=== PATIENT | male | born 1980 | race Caucasian/White ===

== ENCOUNTER 2017-03-28 21:58 | Emergency (ER) | payer OTHER, SELFPAY | END 2017-03-29 00:02 | disposition home or self-care (01) | PROVIDERS: Emergency Provider Emergency Medicine; Family Provider Emergency Medicine; Visit Provider Emergency Medicine | DX: J10.1 Influenza due to other identified influenza virus with other respiratory manifestations (principal); F17.210 Nicotine dependence, cigarettes, uncomplicated; Z88.0 Allergy status to penicillin; Z88.6 Allergy status to analgesic agent | CPT/HCPCS: 71020; 87070; 87275; 87276; 87430; 99282 ==

== ENCOUNTER 2017-08-12 16:45 | Outpatient (RCR) | payer OTHER, SELFPAY | END 2017-08-12 16:46 | disposition home or self-care (01) | LOC: PT 16:45 | PROVIDERS: Family Provider Emergency Medicine; PCP Emergency Medicine; Visit Provider Orthopaedic Surgery Sports Medicine | DX: M19.019 Primary osteoarthritis, unspecified shoulder (principal) | CPT/HCPCS: 97163 ==

== ENCOUNTER 2021-04-26 23:53 | Inpatient (IN) | payer MEDICAID, SELFPAY ==
[2021-04-26 23:42] VITALS: BP 142/89; PULSE 99; RESP 14; TEMP 36.9; O2SAT 90; BMI 31.1
--- NOTE | 2021-04-27 00:30 | XR_ITS ---
PROCEDURE INFORMATION: Exam: XR Chest Exam date and time: 04/27/2021 12:30 AM Age: 40 years old Clinical indication: Shortness of breath; Additional info: Overdose TECHNIQUE: Imaging protocol: XR of the chest. Views: 1 view. COMPARISON: CR CXR CHEST(2 VIEWS-NOT PORTABLE) 03/28/2017 10:44 PM FINDINGS: Lungs: Right lung and left lower lung consolidations. Pleural spaces: Unremarkable. No pleural effusion. No pneumothorax. Heart/Mediastinum: Borderline cardiomegaly. Bones/joints: Unremarkable. IMPRESSION: Right lung and left lower lung consolidations. This may represent pneumonia. Aspiration is also possible.
--- NOTE | 2021-04-27 01:18 | HMH.EDOD ---
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 The time I documented below is in addition to time spent performing reported procedures but includes the following listed in this critical care notation. Medical Decision Making - Medical Records Medical records reviewed: Yes: I reviewed the patient's medical records. - Javier Inquiry Pt receiving controlled substance: No Vital Signs: 04/26/21 23:42 04/27/21 01:30 Temperature 98.4 F Temperature Source Oral Pulse Rate [Right] 99 H Respiratory Rate 14 Blood Pressure 121/85 Blood Pressure [Right Arm] 142/89 H Blood Pressure Mean 93 Blood Pressure Mean [Right Arm] 106 02 Sat by Pulse Oximetry 90 L 94 L Oxygen Delivery Method Room Air Nasal Cannula Oxygen Flow Rate (LPM) 3 - Lab Data Lab results reviewed: Yes: I reviewed the patient's lab results. Lab Results 04/27/21 01:22: WBC 22.4 H*, RBC 5.27, Hgb 16.2, Hct 47.9, MCV 90.9, MCH 30.8, MCHC 33.9, RDW 13.6, Plt Count 292, MPV 9.9, Neut % (Auto) 87.0 H, Lymph % (Auto) 7.0 L, [place] % (Auto) 4.4, Eos % (Auto) 0.7, Baso % (Auto) 0.9, Neut # (Auto) 19.5 H, Lymph # (Auto) 1.6, [place] # (Auto) 1.0, Eos # (Auto) 0.2, Baso # (Auto) 0.2, Total Counted 100, Neutrophils % (Manual) 88 H, Lymphocytes % (Manual) 11, Eosinophils % (Manual) 1, Platelet Estimate Normal, RBC Morphology Not Reportable, Stomatocytes 1+, ESR 6 04/27/21 01:22: Sodium 141, Potassium 4.4, Chloride 108 H, Carbon Dioxide 24, Anion Gap 13.4, BUN 8 L, Creatinine 0.70, Estimated Creat Clear 211, Estimated GFR 126, Est GFR ( Amer) 153, Glucose 179 H, Calcium 8.5, Total Bilirubin 0.3, AST 31, ALT 22, Alkaline Phosphatase 93, C-Reactive Protein 2.5, Total Protein 7.2, Albumin 4.5, Globulin 2.7, Albumin/Globulin Ratio 1.7, Procalcitonin 0.122, Salicylates < 1.0 L, Acetaminophen < 10 L 04/27/21 01:22: Plasma/Serum Alcohol < 10 04/27/21 01:29: Urine Opiates Screen Negative, Urine Methadone Screen Negative, Ur Barbituates Screen Negative, Ur Phencyclidine Scrn Negative, Ur Amphetamines Screen Negative, U Benzodiazepines Scrn Negative, Urine Cocaine Screen Negative, U Marijuana (THC) Screen Negative 04/27/21 01:29: Urine Color Yellow, Urine Appearance Clear, Urine pH 6.0, Ur Specific [place] >= 1.030, Urine Protein 2+, Urine Glucose (UA) 2+, Urine Ketones Negative, Urine Blood Negative, Urine Nitrate Negative, Urine Bilirubin Negative, Urine Urobilinogen 0.2, Ur Leukocyte Esterase Negative, Urine WBC Occasional, Urine Bacteria Trace 04/27/21 01:29: Lactate 2.3 H 04/27/21 01:29: SARS-CoV-2 (PCR) Detected A, Influenza A Untype (PCR) Not detected, Influenza Type B (PCR) Not detected Result diagrams: 04/27/21 01:22 04/27/21 01:22 Orders (Tests/Meds): ED MEDICATIONS Generic Name Dose Route Start Last Admin Trade Name Freq PRN Reason Stop Dose Admin Sodium Chloride 1,000 mls @ 999 mls/hr 04/27/21 00:45 04/27/21 01:13 Sod Chlor 0.9% 1000ml Bag IV 04/27/21 01:45 999 mls/hr .Q1H1M KRISTEN Administration Azithromycin 500 mg/ Sodium 250 mls @ 250 mls/hr 04/27/21 01:45 04/27/21 02:47 Chloride IV 05/11/21 01:44 250 mls/hr Q24H KRISTEN Administration Ceftriaxone Sodium 1 gm/ 50 mls @ 100 mls/hr 04/27/21 01:45 04/27/21 01:58 Sodium Chloride IV 05/11/21 01:44 100 mls/hr Q24H KRISTEN Administration Clindamycin Phosphate 900 mg/ 106 mls @ 100 mls/hr 04/27/21
[2021-04-27 01:30] VITALS: BP 121/85; O2SAT 94
[2021-04-27 01:30] LABS: Basophils # 0.2 K/mm3 (0-0.2); Basophils % 0.9 % (0.1-2.0); Eosinophils # 0.2 K/mm3 (0.0-0.4); Eosinophils % 0.7 % (0.1-12.0); Hematocrit 47.9 % (42.0-52.0); Hemoglobin 16.2 g/dL (14.1-18.0); Lymphocytes # 1.6 K/mm3 (0.7-4.5); Mean Corpuscular HGB Conc 33.9 g/dL (31.8-35.4); Mean Corpuscular Hemoglobin 30.8 pg (27.0-31.2); Mean Corpuscular Volume 90.9 fl (80-94); Mean Platelet Volume 9.9 fl (7.4-10.4); Monocytes % 4.4 % (1.7-9.3); Neutrophils # 19.5 K/mm3 (1.8-7.8); Platelet Count 292 K/mm3 (142-424); Red Blood Count 5.27 M/mm3 (4.60-6.20); Red Cell Distribution Width 13.6 % (11.5-17.5); White Blood Count 22.4 K/mm3 (4.8-10.8)
[2021-04-27 01:39] LABS: MANUAL DIFFERENTIAL MANUAL DIFFERENTIAL (MANUAL DIFF)
--- NOTE | 2021-04-27 01:42 | CT_ITS ---
PROCEDURE INFORMATION: Exam: CTA Chest With Contrast Exam date and time: 04/27/2021 1:42 AM Age: 40 years old Clinical indication: Shortness of breath; Additional info: SOA TECHNIQUE: Imaging protocol: Computed tomographic angiography of the chest with contrast. 3D rendering (Not supervised by radiologist): MIP and/or 3D reconstructed images were created by the technologist. Radiation optimization: All CT scans at this facility use at least one of these dose optimization techniques: automated exposure control; mA and/or kV adjustment per patient size (includes targeted exams where dose is matched to clinical indication); or iterative reconstruction. Contrast material: ISOVUE; Contrast volume: 70 ml; Contrast route: INTRAVENOUS (IV); COMPARISON: CR XR CHEST PORTABLE 04/27/2021 12:39 AM FINDINGS: Pulmonary arteries: Normal. No pulmonary emboli. Aorta: Unremarkable. No aortic aneurysm. No aortic dissection. Lungs: Widespread ground-glass airspace disease more pronounced in the right lung than left. There is a 3 mm left upper lobe nodule image 30 series 5. Pleural spaces: Unremarkable. No pneumothorax. No pleural effusion. Heart: Unremarkable. No cardiomegaly. No pericardial effusion. Lymph nodes: Unremarkable. No enlarged lymph nodes. Liver: Hepatic steatosis. Gallbladder and bile ducts: Gallbladder is absent. Bones/joints: Unremarkable. No acute fracture. Soft tissues: Unremarkable. Other findings: Stigmata of old granulomatous disease. IMPRESSION: 1. Widespread ground-glass airspace disease more pronounced in the right lung than left. Atypical infection, aspiration, or noncardiogenic edema are considerations. 2. Hepatic steatosis. 3. There is a 3 mm left upper lobe nodule image 30 series 5. For patients at low risk (minimal or absent history of smoking and of other known risk factors), no routine follow-up is indicated. For patients at high risk (history of smoking or of other known risk factors), consider optional CT Chest at 12 months. (Reference: Afsaneh) REFERENCES: Afsaneh Pierce, et al. Guidelines for Management of Incidental Pulmonary Nodules Detected on CT Images: From the Fleischner Society 2017. Radiology. 2017;284(1):228-243.
[2021-04-27 01:44] LABS: Alanine Aminotransferase 22 U/L (12-78); Albumin Level 4.5 g/dl (3.5-5.0); Albumin/Globulin Ratio 1.7 (1.1-1.8); Alkaline Phosphatase 93 U/L (38-126); Anion Gap 13.4 mEq/L (5-15); Aspartate Amino Transferase 31 U/L (17-59); Bilirubin,Total 0.3 mg/dl (0.2-1.3); Blood Urea Nitrogen 8 mg/dl (9-20); Calcium 8.5 mg/dl (8.4-10.2); Carbon Dioxide 24 mmol/L (22.0-30.0); Chloride 108 mmol/L (98-107); Creatinine Clearance Estimated 211 mL/min (50-200); Estimated Glomerular Filt Rate 126 ml/min (>60); GFR (African American) 153 ML/MIN (>60); Globulin 2.7 g/dL (1.3-3.2); Glucose 179 mg/dl (74-100); Potassium 4.4 mmoL/L (3.5-5.1); Sodium 141 mmol/L (136-145); Total Protein,Serum 7.2 g/dl (6.3-8.2)
[2021-04-27 01:51] LABS: Acetaminophen < 10 ug/ml (10-30); Ethyl Alcohol < 10 mg/dl (0-10); Salicylate < 1.0 mg/dL (2.0-20.0)
[2021-04-27 01:55] LABS: C-Reactive Protein 2.5 mg/L (0-4)
[2021-04-27 01:59] LABS: Influenza A, PCR Not Detected (NotDetected); Influenza B, PCR Not Detected (NotDetected); Microscopic, Urine URINE MICROSCOPIC (MICROSCOPIC)
[2021-04-27 02:00] LABS: Procalcitonin 0.122 ng/mL (0.0-2.0)
[2021-04-27 02:04] LABS: Erythrocyte Sedimentation Rate 6 mm/hr (0-15)
[2021-04-27 02:07] LABS: Appearance,Urine CLEAR (Clear); Bilirubin,Urine Negative (Negative); Blood, Urine Negative (Negative); Color,Urine YELLOW (Yellow); Glucose,Urine (UA) 2+ (Negative); Ketones,Urine Negative (Negative); Leukocyte Esterase,Urine Negative (Negative); Nitrate,Urine Negative (Negative); Protein,Urine 2+ (Negative); Specific Gravity, Urine >= 1.030 (1.005-1.030); Urobilinogen,Urine 0.2 EU/dl (0.2)
[2021-04-27 02:18] LABS: Benzodiazepines Screen,Urine Negative ng/ml (<200)
[2021-04-27 02:19] LABS: Amphetamine/Metha Screen,Urine Negative ng/ml (<1000); Bacteria,Urine Trace /lpf; WBC,Urine Occasional #/hpf (0-3)
[2021-04-27 02:20] LABS: Barbiturates Screen,Urine Negative ng/ml (<200); Cannabinoid Screen,Urine Negative ng/ml (<50); Lactic Acid 2.3 mmol/L (0.7-2.1)
[2021-04-27 02:21] LABS: Cocaine Screen,Urine Negative ng/ml (<300); Coronavirus 19, PCR Detected (NotDetected)
[2021-04-27 02:22] LABS: Methadone Screen,Urine Negative ng/ml (<300); Opiate Screen,Urine Negative ng/ml (<300)
[2021-04-27 02:23] LABS: Phencyclidine Screen,Urine Negative ng/ml (<25)
[2021-04-27 03:01] LABS: Eosinophils % 1 % (0-3); Lymphocytes % 11 % (10-50); Neutrophils % 88 % (42-76); Total Cells Counted 100
[2021-04-27 03:02] LABS: Platelet Estimate Normal; Stomatocytes 1+
[2021-04-27 04:15] VITALS: BMI 34.1
[2021-04-27 05:46] VITALS: BP 134/75; PULSE 85; RESP 20; TEMP 36.8; O2SAT 96
[2021-04-27 05:52] VITALS: BP 134/78; PULSE 86; RESP 20; TEMP 37.1; O2SAT 93
[2021-04-27 05:58] LABS: Reflex Lactic Add Lactic Reflex
--- NOTE | 2021-04-27 07:30 | XR_ITS ---
FINAL REPORT CLINICAL HISTORY: sob covid pneumonia COMPARISON: 04/27/2021 FINDINGS: SINGLE VIEW CHEST The heart is normal in size. The mediastinum is unremarkable. There is patchy airspace opacity in the right perihilar region which is improved since previous, probably related to resolving pneumonia. There is no pneumothorax. IMPRESSION: Resolving pneumonia. Reviewed, Interpreted and Dictated by Juanjose Roblero MD Transcribed by Debi Ramirez Authenticated by Juanjose Roblero MD on 04/27/2021 10:07:41 AM [facility]
[2021-04-27 07:52] LABS: Anion Gap 12.4 mEq/L (5-15); Blood Urea Nitrogen 6 mg/dl (9-20); Calcium 8.9 mg/dl (8.4-10.2); Carbon Dioxide 22 mmol/L (22.0-30.0); Chloride 108 mmol/L (98-107); Creatinine Clearance Estimated 269 mL/min (50-200); Estimated Glomerular Filt Rate 151 ml/min (>60); GFR (African American) 182 ML/MIN (>60); Glucose 165 mg/dl (74-100); Magnesium 1.8 mg/dl (1.6-2.3); Potassium 4.4 mmoL/L (3.5-5.1); Sodium 138 mmol/L (136-145)
[2021-04-27 07:57] LABS: Lactic Acid Follow Up (RFLX 1) 3.1 mmol/L (0.7-2.1)
[2021-04-27 08:00] VITALS: BP 157/88; PULSE 83; RESP 16; TEMP 37.2; O2SAT 92
--- NOTE | 2021-04-27 08:00 | CA_ITS ---
APPROVED REPORT EXAM: Comprehensive 2D, Doppler, and color-flow Echocardiogram English As A Second Language Instructor: Brook Orta CRT Ht: 6 ft 0 in Wt: 251lbs BSA: 2.35 BP: 121/85 mmHg Indications: OD, Narcan'd opiate use, hemophilia, Murmur, Palpitations, Hypertension/HDD 2D Dimensions LVOT 1.97 cm (M/F) 1.5-2.5 LA Volume 23.60 mL LA Volume Index 10.00 mL/m2 (M/F) 16-34 M-Mode Dimensions RVDd 3.81 cm (0.9-2.6) LA Diam 3.54 cm (1.9-4.0) LVDd 4.70 cm (3.5-5.7) Ao Diam 3.83 cm (2.0-3.7) LVDs 3.05 cm (3.5-5.7) IVSd 1.61 cm (0.6-1.1) PWd 0.76 cm (0.6-1.1) EF (Teich) 64.50% FS 35.10% EDV (Teich) 102.40 mL TAPSE 1.96 (<1.7) ESV (Teich) 36.40 mL LV Diastology E Decel Time 233.00 (160-240 msec) E/A Ratio 0.66 MED E' 7.70 (< 7 cm/sec) MED A' 15.20 cm/s E'/MED E' Ratio 9.92 (>14) LAT E' 7.30 (<10 cm/sec) LAT A' 11.40 cm/s E/LAT E' Ratio 10.47 (>14) Aortic Valve AO Peak GR. 10.20 mmHg Mitral Valve MV A Velocity 116.00 (40-130 cm/s) E/A Ratio 0.66 MV Decel. Time 233.00 (160-240 ms) Pulmonary Valve PV Peak Velocity 93.00 (50-150 cm/s) Tricuspid Valve TR P. Velocity 115.00 cm/s RAP Estimate 10.00 mmHg RVSP 15.30 mmHg Left Ventricle Left atrium is mildly enlarged, left ventricle is normal size, mild concentric left ventricular hypertrophy, visually estimated ejection fraction 55% with no regional wall motion abnormality, grade 1 diastolic dysfunction seen without tissue Doppler evidence of raise left atrial pressure. Right Ventricle Right atrium and right ventricle mildly enlarged with normal contractility. Aortic Valve Aortic valve is minimally thickened and fibrosed, there is no aortic stenosis or aortic insufficiency. Mitral Valve Mitral valve grossly normal, there is trace mitral regurgitation. Tricuspid Valve Tricuspid valve grossly normal, there is trace tricuspid regurgitation, tricuspid regurgitation jet velocity is inadequate for calculation of the right ventricular systolic pressure. Pulmonic Valve Pulmonic valve is poorly visualized. Great Vessels Aortic root is normal size. Inferior vena cava is normal size with normal inspiratory collapse. Pericardium No significant pericardial effusion noted. Conclusion 1. Mild biatrial enlargement, normal left ventricular size, mild concentric left ventricular hypertrophy, visually estimated ejection fraction 55% with no regional wall motion abnormality, grade 1 diastolic dysfunction seen without tissue Doppler evidence of raise left atrial pressure. 2. Mildly enlarged right ventricle with normal contractility. 3. Trace mitral and tricuspid regurgitation. 4. No significant pericardial effusion noted. 5. Inferior vena cava is normal size with normal inspiratory collapse. Electronically signed by : Akash Fairbanks MD 04/28/2021 09:22:46
--- NOTE | 2021-04-27 08:18 | HMH.PHAVTE ---
[facility] Pharmacy VTE Monitoring - Patient Demographics Admission date: 04/27/21 Report Date: 04/27/21 Time: 08:18 Allergies/Adverse Reactions: Patient Allergies penicillin G [PENICILLIN G] Allergy (Intermediate, Verified 10/20/20 13:12) I-HIVES aspirin [ASPIRIN] Allergy (Unknown, Verified 10/20/20 13:12) NSAIDS (Non-Steroidal Anti-Inflamma [NSAIDS (NON-STEROIDAL ANTI-INFLAMMA] Allergy (Unknown, Verified 10/20/20 13:12) Height: 1.83 m Weight: 114.107 kg Patient Problems: Current Active Problems Obesity (BMI 30-39.9) (Acute) COVID-19 (Acute) Pneumonia (Acute) 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
[2021-04-27 08:31] LABS: Basophils # 0.1 K/mm3 (0-0.2); Basophils % 0.5 % (0.1-2.0); Eosinophils % 0.1 % (0.1-12.0); Hematocrit 44.3 % (42.0-52.0); Hemoglobin 14.8 g/dL (14.1-18.0); Lymphocytes # 0.7 K/mm3 (0.7-4.5); Lymphocytes % 5.9 % (10-50); Mean Corpuscular HGB Conc 33.4 g/dL (31.8-35.4); Mean Corpuscular Hemoglobin 30.1 pg (27.0-31.2); Mean Corpuscular Volume 90.2 fl (80-94); Mean Platelet Volume 10.7 fl (7.4-10.4); Monocytes # 0.3 K/mm3 (0.1-1.0); Monocytes % 2.2 % (1.7-9.3); Neutrophils # 11.5 K/mm3 (1.8-7.8); Neutrophils % 91.4 % (37.0-80.0); Platelet Count 213 K/mm3 (142-424); Red Blood Count 4.91 M/mm3 (4.60-6.20); Red Cell Distribution Width 13.6 % (11.5-17.5); White Blood Count 12.6 K/mm3 (4.8-10.8)
[2021-04-27 09:27] LABS: Reflex Lactic (2 hrs) Add Lactic Reflex
[2021-04-27 09:59] LABS: Lactic Acid Follow up (RFLX 2) 2.9 mmol/L (0.7-2.1)
[2021-04-27 10:37] VITALS: BMI 34.0
--- NOTE | 2021-04-27 13:57 | HMH.PULMCON ---
*Admission Date: 04/27/21 *Reason for consult:: Acute hypoxic respiratory failure, COVID-19 pneumonia *History of present illness: Mr. Sabillon is a 40-year-old male not yet vaccinated for COVID-19 pneumonia carries a diagnosis of hemophilia A presented to the hospital worsening respiratory distress and found positive for COVID-19 pneumonia and pulmonary was called for further management. [facility] History Medical History: Reports:: Anxiety, Hypertension Denies:: Cancer, Diabetes Mellitus Type 1, Diabetes Mellitus Type 2, MRSA *Have you ever received a pneumonia vaccine?: No *Have you received a flu vaccine this season?: No Laterality Cases: Left: Tonsillectomy Other Surgeries: Yes: Cholecystectomy Amputation: No - *Social History Smoking Status: Current every day smoker Tobacco Type: cigarettes # Packs/Day (cigarettes): 1 Alcohol Intake: never Substance Use Type: opiates *Occupational Status:: unemployed *Travel in the last 8 weeks: None - Psychiatric History Pschychiatric History:: Reports:: Anxiety Family Hx:: No significant family history ROS - Cons Reports body ache(s), Denies chills - Eyes Denies change in vision - ENT Denies bleeding gums, Denies change in voice - Card Reports shortness of breath, Reports shortness of breath with activity - Resp Respiratory: Reports cough, Reports non-productive cough, Reports dyspnea, Reports dyspnea on exertion, Denies excessive phlegm production, Denies coughing up blood, Denies pain on inspiration, Denies cough with sputum production, Denies pain with breathing - GI Gastrointestingal: Denies: abdominal pain - Psych Denies thoughts of hurting/killing others, Denies thoughts of hurting/killing yourself Meds Home Medications Medication Instructions Recorded Confirmed Type Amlodipine Besylate/Benazepril 1 cap PO DAILY 04/27/21 04/27/21 History [Amlodipine-Benazepril 10-20 mg] Buspirone HCl [Buspirone 15 mg 15 mg PO TIDP PRN 04/27/21 04/27/21 History Tablets] Allergies Allergy/AdvReac Type Severity Reaction Status Date / Time penicillin G [PENICILLIN G] Allergy Intermediate I-HIVES Verified 10/20/20 13:12 aspirin [ASPIRIN] Allergy Unknown Verified 10/20/20 13:12 NSAIDS (Non-Steroidal Allergy Unknown Verified 10/20/20 13:12 Anti-Inflamma [NSAIDS (NON-STEROIDAL ANTI-INFLAMMA] Exam - Constitutional Constitutional:: Present: no acute distress, comfortable - HENMT Exam HENMT: Present: normocephalic, atraumatic - Eye Exam Eyes:: Present: normal appearance both eyes and related structures - Neck Exam Neck:: Present: normal visual inspection - Respiratory Exam Respiratory:: Present: able to speak in complete sentences, no respiratory distress, wheezing. Absent: crackles, rales - Cardiovascular Exam Cardiac:: Present: S1, S2 - GI Exam GI:: Present: soft - Skin Exam Skin: Present: warm - Neurological Exam Neurological: Present: alert, awake - Extremities Exam Extremities: Present: no cyanosis, no clubbing, no edema - Psychiatric Exam Psychiatric: Present: normal affect Internal Medicine - CN: Reslt - Labs CBC & Chem 7: 04/27/21 07:08 04/27/21 07:08 Labs: Short CBC 04/27/21 04/27/21 Range/Units 01: 07:08 WBC 22.4 H* 12.6 H D (4.8-10.8) K/mm3 Hgb 16.2 14.8 (14.1-18.0) g/dL Hct 47.9 44.3 (42.0-52.0) % Plt Count 292 213 D (142-424) K/mm3 BMP 04/27/21 04/27/21 01: 07:08 Sodium 141 138 Potassium 4.4 4.4 Chloride 108 H 108 H Carbon Dioxide 24 22 BUN 8 L 6 L Creatinine 0.70 0.60 L Glucose 179 H 165 H Calcium 8.5 8.9 Liver Function 04/27/21 Range/Units 01:22 Total Bilirubin 0.3 (0.2-1.3) mg/dl AST 31 (17-59) U/L ALT 22 (12-78) U/L Alkaline Phosphatase 93 (38-126) U/L Albumin 4.5 (3.5-5.0) g/dl Urine 04/27/21 Range/Units 01:29 Urine Color Yellow (Yellow) Urine Appearance Clear (Clear) Urine pH 6.0 (5.0
--- NOTE | 2021-04-27 14:07 | HMH.HP ---
*Admission Date: 04/27/21 *Chief complaint: syncope *History of present illness: 40-year-old male presented to ed via ambulance,pt with reported sudden collapse while sitting on couch and woke up in hospital. Pt states has been not feeling well over the last week but no cough. Per ED record on arrival by ems they report agonal breathing /cyanotic/miosis pupils -ems report pt responded to narcan and after was awake but vomiting - pt reports does not remember or know details of what happened but denied opiate use - has hx of hemophilia A- factor 8 def - no known exposure to covid-19. Patient was admitted for covid 19 pneumonia possible aspiration and consulted pulmonology. [facility] History I have reviewed the patient's past medical history: Yes Medical History: Reports:: Anxiety, Hypertension Denies:: Cancer, Diabetes Mellitus Type 1, Diabetes Mellitus Type 2, MRSA *Have you ever received a pneumonia vaccine?: No *Have you received a flu vaccine this season?: No Laterality Cases: Left: Tonsillectomy Other Surgeries: Yes: Cholecystectomy Amputation: No - *Social History Smoking Status: Current every day smoker Tobacco Type: cigarettes # Packs/Day (cigarettes): 1 Alcohol Intake: never Substance Use Type: opiates *Occupational Status:: unemployed *Travel in the last 8 weeks: None - Psychiatric History Pschychiatric History:: Reports:: Anxiety Family Hx:: No significant family history Review of Systems - Review of Systems Review of systems:: pertinent systems reviewed and negative unless documented below - Constitutional Reports body ache(s), Denies fever(s) - Eyes Denies blurry vision - ENT Denies abnormal hearing - *Cardiovascular Denies chest pain at rest - *Respiratory Reports cough - *Gastrointestinal Denies abdominal pain - *Genitourinary Denies urinary hesitancy - *Musculoskeletal Denies joint pain - Integumentary/Breasts Denies bleeding lesions - *Neurologic Denies abnormal hearing, Denies dizziness, Denies headache(s), Denies seizure-like activity - Psychiatric Denies anxiety - Endocrine Denies increased hunger - Hematologic/Lymphatic Denies easy bruising Meds Home Medications Medication Instructions Recorded Confirmed Type Amlodipine Besylate/Benazepril 1 cap PO DAILY 04/27/21 04/27/21 History [Amlodipine-Benazepril 10-20 mg] Buspirone HCl [Buspirone 15 mg 15 mg PO TIDP PRN 04/27/21 04/27/21 History Tablets] Allergies Allergy/AdvReac Type Severity Reaction Status Date / Time penicillin G [PENICILLIN G] Allergy Intermediate I-HIVES Verified 10/20/20 13:12 aspirin [ASPIRIN] Allergy Unknown Verified 10/20/20 13:12 NSAIDS (Non-Steroidal Allergy Unknown Verified 10/20/20 13:12 Anti-Inflamma [NSAIDS (NON-STEROIDAL ANTI-INFLAMMA] Exam Vital signs and Labs for Last 24 Hours: Temp Pulse Resp BP Pulse Ox 98.9 F 83 16 157/88 H 92 L 04/27/21 08:00 04/27/21 08:00 04/27/21 08:00 04/27/21 08:00 04/27/21 08:00 Laboratory Results - last 24 hr 04/27/21 01:22: WBC 22.4 H*, RBC 5.27, Hgb 16.2, Hct 47.9, MCV 90.9, MCH 30.8, MCHC 33.9, RDW 13.6, Plt Count 292, MPV 9.9, Neut % (Auto) 87.0 H, Lymph % (Auto) 7.0 L, [place] % (Auto) 4.4, Eos % (Auto) 0.7, Baso % (Auto) 0.9, Neut # (Auto) 19.5 H, Lymph # (Auto) 1.6, [place] # (Auto) 1.0, Eos # (Auto) 0.2, Baso # (Auto) 0.2, Total Counted 100, Neutrophils % (Manual) 88 H, Lymphocytes % (Manual) 11, Eosinophils % (Manual) 1, Platelet Estimate Normal, RBC Morphology Not Reportable, Stomatocytes 1+, ESR 6 04/27/21 01:22: Sodium 141, Potassium 4.4, Chloride 108 H, Carbon Dioxide 24, Anion Gap 13.4, BUN 8 L, Creatinine 0.70, Estimated Creat Clear 211, Estimated GFR 126, Est GFR ( Amer) 153, Glucose 179 H, Calcium 8.5, Total Bilirubin 0.3, AST 31, ALT 22, Alkaline Phosphatase 93, C-Reactive Protein 2.5, Total Protein 7.2, Albumin 4.5, Globulin 2.7, Albumin/Globulin Ratio 1.7, Procalcitonin 0.122, Salicylates < 1.0
[2021-04-27 16:00] VITALS: BP 138/71; PULSE 99; RESP 16; O2SAT 75
--- NOTE | 2021-04-27 16:21 | PC.NURSE ---
Addendum entered by Latoya Acharya RN 04/27/21 17:45: Results of VBG relayed to Dr. Aguero by Solange,RT @ 1730 Addendum entered by Latoya Acharya RN 04/27/21 17:14: Pt refused ABG, Dr. Aguero notified. New order for VBG. Original Note: Pt sat on room air @ 1600 VS check found to be mid 70's. Pt denies being SOA, breathing no labored, pt @ rest. Pt placed on 2 L O2 per nasal cannula, sat increased to 81-82%. O2 increased to 4 L, sat slowly increasing to 89-90%. Dr. Barajas notified of this @ 1630, no new orders @ this time. requests pulm be notified as well. 1638 - Dr. Aguero notified of these findings as well. Orders received for ABG and CXR.
--- NOTE | 2021-04-27 16:38 | XR_ITS ---
PROCEDURE INFORMATION: Exam: XR Chest Exam date and time: 04/27/2021 4:38 PM Age: 40 years old Clinical indication: Shortness of breath; Additional info: Hypoxia TECHNIQUE: Imaging protocol: XR of the chest. Views: 1 view. COMPARISON: CR XR CHEST PORTABLE 04/27/2021 8:42 AM FINDINGS: Lungs: Patchy airspace opacity is noted within the right perihilar region and right lower lobe consistent with pneumonia. Bilateral hyperinflation is present. Atelectatic changes noted within the left lower lobe. Pleural spaces: Unremarkable. No pleural effusion. No pneumothorax. Heart/Mediastinum: Unremarkable. No cardiomegaly. Bones/joints: Unremarkable. IMPRESSION: 1. Patchy airspace opacity is noted within the right perihilar region and right lower lobe consistent with pneumonia. 2. Bilateral hyperinflation is present. 3. Atelectatic changes noted within the left lower lobe.
[2021-04-27 17:19] LABS: VBG Base Excess -8.6 mmol/L (-2.4-2.3); VBG HCO3 17.5 mmol/L (23-30); VBG Oxygen Saturation 96.1 % (50-70); VBG PH 7.32 mmol/L (7.31-7.41); VBG PO2 82.6 mmol/L (28-40); VBG Total CO2 18.6 mmol/L (23-27)
--- NOTE | 2021-04-27 18:38 | P.PN_ITS ---
Acute Rapid Response Note - Subjective Date Responded: 04/27/21 Time Responded: 18:10 Provider Note: I was called to [facility] on the floor for 40-year-old male admitted to the ICU. He had a pulse. Was not breathing. Cyanotic upon my arrival. Was admitted yesterday evening after presumed overdose. Also found to have COVID-19. His friends had been bringing him snacks and drinks throughout the day today. When nursing staff went to check on him he was laying on the side of the bed, unresponsive. Pupils pinpoint on my arrival. Patient receiving [id number] ventilation. Oxygen saturation in the 70s. Tachycardic and hypertensive. - Objective Findings: Vital Signs - Last 4 Hours Temperature 98.9 F 04/27/21 08:00 Temperature Source Oral 04/27/21 08:00 Pulse Rate 99 H 04/27/21 16:00 Respiratory Rate 16 04/27/21 16:00 Blood Pressure 138/71 04/27/21 16:00 Blood Pressure Mean 93 04/27/21 16:00 Blood Pressure Source Automatic Cuff 04/27/21 16:00 Blood Pressure Position Supine 04/27/21 05:52 02 Sat by Pulse Oximetry 75 L 04/27/21 16:00 Oxygen Delivery Method 04/27/21 17:46 Oxygen Flow Rate (LPM) 4 04/27/21 17:46 Lab Results for Past 12 Hours 04/27/21 17:12: VBG pH 7.32, VBG pCO2 35.0, VBG pO2 82.6 H, VBG HCO3 17.5 L, VBG Total CO2 18.6 L, VBG O2 Saturation 96.1 H, VBG Base Excess -8.6 L 04/27/21 09:35: Lactate 2.9 H 04/27/21 07:08: Lactate 3.1 H 04/27/21 07:08: Sodium 138, Potassium 4.4, Chloride 108 H, Carbon Dioxide 22, Anion Gap 12.4, BUN 6 L, Creatinine 0.60 L, Estimated Creat Clear 269, Estimated GFR 151, Est GFR ( Amer) 182, Glucose 165 H, Calcium 8.9, Magnesium 1.8 04/27/21 07:08: WBC 12.6 H D, RBC 4.91, Hgb 14.8, Hct 44.3, MCV 90.2, MCH 30.1, MCHC 33.4, RDW 13.6, Plt Count 213 D, MPV 10.7 H, Neut % (Auto) 91.4 H, Lymph % (Auto) 5.9 L, [place] % (Auto) 2.2, Eos % (Auto) 0.1, Baso % (Auto) 0.5, Neut # (Auto) 11.5 H, Lymph # (Auto) 0.7, [place] # (Auto) 0.3, Eos # (Auto) 0.0, Baso # (Auto) 0.1 Rapid Response Exam - General General appearance: obtunded, obese - Head Head exam: atraumatic - Eye Eye exam: Present: normal appearance, other (Pupils pinpoint) - ENT ENT exam: Present: mucous membranes moist - Respiratory Respiratory exam: Present: other (No purposeful respiratory effort.) - Cardiovascular Cardiovascular exam: Present: normal rhythm, tachycardia - Abdominal Exam Abdominal exam: Present: soft. Absent: distention - Extremities Exam Extremities exam: Present: normal inspection - Neurological Exam Neurological exam: Present: other (Obtunded. No purposeful movements) - Skin Skin exam: Present: warm, diaphoresis RR Procedures/Assess/Plan (1) Altered mental status Status: Acute - Assessment and plan all Dx Assessment and Plan for all problems:: Altered mental status Hypoxia, no purposeful respiratory effort, and point pupils Patient receiving [id number] ventilation Given 1 mg IV naloxone. Had near immediate return of respiratory effort. Oxygen saturation appropriate on room air. Placed on 2 L by nasal cannula. Given additional 0.4 mg IV Narcan. Some localization to pain. Given additional 0.4 mg IV Narcan. Now awake and alert. Denies taking any drugs. Recommended contacting primary physician Recommended no outside visitors, food or drink
--- NOTE | 2021-04-27 18:41 | PC.NURSE ---
1809 - Pt found unresponsive, on side of bed by nursing staff. Pt returned to bed w/ minimal resp effort noted. Pt bagged, pulse weak, pupils fixed pinpoint. Sternal rubs performed w/ no reaction noted. BP 197/107 Code called @ 1811. Crash cart to bedside, defib pads placed on patient. Dr. Vale to bedside. Verbal order for 1 [address] IV [address]arcan from Dr. Vale. 1817 - BP 139/107, HR 123 1819 - 1 mg Narcan IV admin per TATIANNA Virk,VERONICA BP 185/92, HR 135, sat 98% 4 LNC 182 - Pt responsive to sternal rub 1822 - 1 mg Narcan IV admin per TATIANNA Virk RN 1824 - HR 110, sat 98% 4L NC 1825 - Pt responsive and talking to MD Verbal order for stat CXR, rad to bedside. No other orders received. Dr. Vale states she will speak to Dr. Barajas about above event. Dr. Aguero made aware of above as well @ 183. Pt currently sitting up in bed texting on cell phone. NAD. BP 143/81, HR 109, Resp even, unlabored 16/min, sat 91%. Pt in sinus tach on tely. Call marrufo w/in reach. Will continue to monitor.
--- NOTE | 2021-04-27 18:49 | XR_ITS ---
PROCEDURE INFORMATION: Exam: XR Chest Exam date and time: 04/27/2021 6:49 PM Age: 40 years old Clinical indication: Other: Code TECHNIQUE: Imaging protocol: XR of the chest. Views: 1 view. COMPARISON: CR XR CHEST PORTABLE 04/27/2021 4:52 PM FINDINGS: Lungs: Right perihilar airspace opacity unchanged from prior exam. Pleural spaces: Unremarkable. No pleural effusion. No pneumothorax. Heart/Mediastinum: Unremarkable. No cardiomegaly. Bones/joints: Unremarkable. Soft tissues: Defibulator pads overlie the chest. IMPRESSION: Right perihilar airspace opacity unchanged from prior exam.
[2021-04-27 20:00] VITALS: BP 119/67; PULSE 106; RESP 18; TEMP 36.6; O2SAT 91
--- NOTE | 2021-04-28 05:19 | PC.NURSE ---
pt requested for IV to be unhooked so he could go to the bathroom. pt was instructed that he is COVID positive and cannot leave his room and a BSC will be provided. pt refused. after providing a BSC pt called out and stated he wanted his IV removed and he was leaving. returned to room with AMA form and pt stated he was not signing out AMA. informed pt that signing the form or not he would still be considered leaving AMA. IV was removed and pt left unit @ [id number]
--- NOTE | 2021-05-01 09:36 | [facility].DCSUM ---
General - General Admission date:: 04/27/21 Discharge date: 04/28/21 HPI HPI: 40-year-old male presented to ed via ambulance,pt with reported sudden collapse while sitting on couch and woke up in hospital. Pt states has been not feeling well over the last week but no cough. Per ED record on arrival by ems they report agonal breathing /cyanotic/miosis pupils -ems report pt responded to narcan and after was awake but vomiting - pt reports does not remember or know details of what happened but denied opiate use - has hx of hemophilia A- factor 8 def - no known exposure to covid-19. Patient was admitted for covid 19 pneumonia possible aspiration and consulted pulmonology. Hospital Course Hospital Course: Laboratory Tests 04/27/21 04/27/21 04/27/21 01:22 01: 01:22 WBC 22.4 H* RBC 5.27 Hgb 16.2 Hct 47.9 MCV 90.9 MCH 30.8 MCHC 33.9 RDW 13.6 Plt Count 292 MPV 9.9 Neut % (Auto) 87.0 H Lymph % (Auto) 7.0 L [place] % (Auto) 4.4 Eos % (Auto) 0.7 Baso % (Auto) 0.9 Neut # (Auto) 19.5 H Lymph # (Auto) 1.6 [place] # (Auto) 1.0 Eos # (Auto) 0.2 Baso # (Auto) 0.2 Total Counted 100 Neutrophils % (Manual) 88 H Lymphocytes % (Manual) 11 Eosinophils % (Manual) 1 Platelet Estimate Normal RBC Morphology Not Reportable Stomatocytes 1+ ESR 6 VBG pH VBG pCO2 VBG pO2 VBG HCO3 VBG Total CO2 VBG O2 Saturation VBG Base Excess Sodium 141 Potassium 4.4 Chloride 108 H Carbon Dioxide 24 Anion Gap 13.4 BUN 8 L Creatinine 0.70 Estimated Creat Clear 211 Estimated GFR 126 Est GFR ( Amer) 153 Glucose 179 H Lactate Calcium 8.5 Magnesium Total Bilirubin 0.3 AST 31 ALT 22 Alkaline Phosphatase 93 C-Reactive Protein 2.5 Total Protein 7.2 Albumin 4.5 Globulin 2.7 Albumin/Globulin Ratio 1.7 Procalcitonin 0.122 Urine Color Urine Appearance Urine pH Ur Specific Leblanc Urine Protein Urine Glucose (UA) Urine Ketones Urine Blood Urine Nitrate Urine Bilirubin Urine Urobilinogen Ur Leukocyte Esterase Urine WBC Urine Bacteria Salicylates < 1.0 L Urine Opiates Screen Urine Methadone Screen Acetaminophen < 10 L Ur Barbituates Screen Ur Phencyclidine Scrn Ur Amphetamines Screen U Benzodiazepines Scrn Urine Cocaine Screen U Marijuana (THC) Screen Plasma/Serum Alcohol < 10 SARS-CoV-2 (PCR) Influenza A Untype (PCR) Influenza Type B (PCR) 04/27/21 04/27/21 04/27/21 01:29 01:29 01:29 WBC RBC Hgb Hct MCV MCH MCHC RDW Plt Count MPV Neut % (Auto) Lymph % (Auto) [place] % (Auto) Eos % (Auto) Baso % (Auto) Neut # (Auto) Lymph # (Auto) [place] # (Auto) Eos # (Auto) Baso # (Auto) Total Counted Neutrophils % (Manual) Lymphocytes % (Manual) Eosinophils % (Manual) Platelet Estimate RBC Morphology Stomatocytes ESR VBG pH VBG pCO2 VBG pO2 VBG HCO3 VBG Total CO2 VBG O2 Saturation VBG Base Excess Sodium Potassium Chloride Carbon Dioxide Anion Gap BUN Creatinine Estimated Creat Clear Estimated GFR Est GFR ( Amer) Glucose Lactate 2.3 H Calcium Magnesium Total Bilirubin AST ALT Alkaline Phosphatase C-Reactive Protein Total Protein Albumin Globulin Albumin/Globulin Ratio Procalcitonin Urine Color Yellow Urine Appearance Clear Urine pH 6.0 Ur Specific Leblanc >= 1.030 Urine Protein 2+ Urine Glucose (UA) 2+ Urine Ketones Negative Urine Blood Negative Urine Nitrate Negative Urine Bilirubin Negative Urine Urobilinogen 0.2 Ur Leukocyte Esterase Negative Urine WBC Occasional Urine Bacteria Trace Salicylates Urine Opiat
== END 2021-04-28 05:23 | disposition left against medical advice (07) | DRG 177 ==
LOC: ER 04-27 00:01 → ICU 04-27 03:47
PROVIDERS: Internal Medicine Pulmonary Disease; Admitting Provider Emergency Medicine; Emergency Provider Emergency Medicine; PCP Family Medicine; Visit Provider Family Medicine
DX: U07.1 COVID-19 (principal); J12.82 Pneumonia due to coronavirus disease 2019; D66 Hereditary factor VIII deficiency; J96.01 Acute respiratory failure with hypoxia; R41.9 Unspecified symptoms and signs involving cognitive functions and awareness; I10 Essential (primary) hypertension; F41.9 Anxiety disorder, unspecified; F17.210 Nicotine dependence, cigarettes, uncomplicated
CPT/HCPCS: 36415; 71045; 71275; 80048; 80053; 80305; 80329; 81001; 82803; 83605; 83735; 84145; 85007; 85025; 85651; 86140; 87040; 93306; 94760; 94761; 96365; 96367; 96375; 99284; C9803; J0456; J0696; J2310; J2405; Q9967; U0003; U0005